=== PATIENT | female | born 1995 | race African-American/Black ===

== ENCOUNTER 2023-05-14 08:54 | Emergency (ER) | payer SELFPAY ==
[2023-05-14] MEDS ORDERED: Bacitracin 1 PK ONE (09:36)
== END 2023-05-14 09:51 | disposition home or self-care (01) ==
LOC: CSHERS 08:54
DX: S61.102A Unspecified open wound of left thumb with damage to nail, initial encounter (principal); W22.8XXA Striking against or struck by other objects, initial encounter
CPT/HCPCS: 99283